=== PATIENT | male | born 1980 | race Caucasian/White ===

== ENCOUNTER 2019-10-11 19:55 | Emergency (ER) | payer BC, SELFPAY ==
[2019-10-11 20:13] VITALS: BP 133/69; PULSE 73; RESP 20; TEMP 36.7; O2SAT 98; BMI 26.4
[2019-10-11 20:20] VITALS: BP 133/69; PULSE 73; RESP 20; TEMP 36.7; O2SAT 98
--- NOTE | 2019-10-11 20:26 | HMH.EDUTC ---
[facility] [place]ression: Encounter for laboratory testing for COVID-19 virus Disposition: Home, Self-Care Condition on Discharge: Good Instructions: Preventing the Spread of Coronavirus Discharge Instructions, DI for Fever (Symptom) -- Adult Additional Instructions: You was given handout for Quarantine instructions for COVID19 make sure that you follow them and not be out in the public or around family until negative result *Make sure to wash your hands frequently Follow up with Family Doctor if no improvement or any worsening of symptoms No work until negative COVID19 test Return if needed Make sure to drink plenty of fluids Over the counter Tylenol as directed on package for fever or pain Call back to the [facility] on Friday to see if your test results are back and the results Straight to ER if any life threatening symptoms Prescriptions: Fluticasone Propionate [Flonase 50mcg nasal spray 16gm] 1 - 2 spr NS DAILY #1 bottle Transmission Status: Pending to [facility] Referrals: PCP,No [Primary Care Provider] - As needed Forms: Work/School Release Medical Decision Making - Robert Inquiry Pt receiving controlled substance: No Robert was queried for this patient: No Vital Signs: 10/11/19 20:13 10/11/19 20:20 Temperature 98.1 F 98.1 F Temperature Source Oral Pulse Rate 73 Pulse Rate [Right Brachial] 73 Respiratory Rate 20 20 Blood Pressure 133/69 Blood Pressure [Right Arm] 133/69 Blood Pressure Mean [Right Arm] 90 Blood Pressure Source [Right Arm] Automatic Cuff Blood Pressure Position [Right Arm] Sitting 02 Sat by Pulse Oximetry 98 Oxygen Delivery Method Room Air - Lab Data Lab results reviewed: Yes: I reviewed the patient's lab results. Orders (Tests/Meds): ORDERS Category Date Time Status SARS-CoV-2, SONIA Stat Lab 10/11/19 20:06 [place] [facility] [place] - General Stated complaint: wants to be test for COVID-19 Time Seen by Provider: 10/11/19 20:26 Mode of Arrival: Ambulatory Source of Information: Patient Limitations: No Limitations Description of Symptoms (Recalled from Triage Doc. by RN): PATIENT STATES THAT HE WAS SENT HOME FROM WORK BECAUSE HIS BODY TEMP WAS ELEVATED. WORK IS REQUESTING HE BE TESTED FOR COVID. DENIES ANY SYMPTOMS OR SICK CONTACTS HEENT Symptoms (Recalled from RN notes): No Resp Symptoms (Recalled from RN notes): No Skin Symptoms (Recalled from RN notes): No MS Symptoms (Recalled from RN notes): No Functional Status (Recalled from RN notes): WNL - History of Present Illness Provider Complaint: Patient states that he was outside and walked into work under a thermoscanner States that his temp read elevated States that his work made him leave and told him that he had to come and get tested for COVID19 States that he has had a little nasal congestion but denies feeling ill or any known exposure to COVID19 - Related Data Previous Rx's Medication Instructions Recorded Fluticasone Propionate [Flonase 1 - 2 spr NS DAILY #1 bottle 10/11/19 50mcg nasal spray 16gm] Allergies Allergy/AdvReac Type Severity Reaction Status Date / Time No Known Allergies Allergy Verified 10/27/17 23:08 - Worker's Comp Is this a Worker's Comp case?: No [facility] History - Hepatitis A Screen Drug use history?: No High risk sexual behaviors?: No History of sexually transmitted infection?: No Currently employed?: No Childcare worker?: No Do you have indoor plumbing?: Yes Do you have electricity?: Yes Attestation statement:: This patient has been screened for Hepatitis A risk factors. I have reviewed the patient's past medical history: Yes Medical History: Denies:: Diabetes Mellitus Type 1 - Social History Smoking Status: Current every day smoker Tobacco Type: smokeless tobacco Alcohol Intake: never Occupational Status: other ROS Obtained: Yes All systems reviewed & no additional complaints, Yes Systems reviewed as appropriate & no additional com
[2019-10-13 15:14] LABS: Covid-19 Nasal PCR Sendout Lex NOT DETECTED
== END 2019-10-11 20:38 | disposition home or self-care (01) ==
PROVIDERS: Emergency Provider Nurse Practitioner
DX: Z03.818 Encounter for observation for suspected exposure to other biological agents ruled out (principal); R50.9 Fever, unspecified; F17.290 Nicotine dependence, other tobacco product, uncomplicated
CPT/HCPCS: 99201; U0004

== ENCOUNTER → 2019-12-24 15:16 | Outpatient (CLI) | payer BC, SELFPAY ==
--- NOTE | 2019-12-24 | XR_ITS ---
PROCEDURE: XR FOOT RT MIN 3V CLINICAL INDICATION: PAIN IN RT FOOT COMPARISON: No exams were available for comparison FINDINGS: No fracture or dislocation. No lytic or blastic change. There is normal mineralization. The joint spaces are well-preserved. No significant degenerative/arthritic changes. No erosive changes evident. There minor hammertoe deformities of the 2nd 3rd toes. Other findings:There is a small spur of the calcaneus at the insertion of Achilles tendon. The plantar arch is normal. IMPRESSION: Minor hammertoe deformities as noted, otherwise normal right foot Dictated by: Dr. Diogo Elizondo MD 12/25/2019 10:10 Dr. Diogo Elizondo MD in [place] 12/25/2019 10:10
--- NOTE | 2019-12-24 | XR_ITS ---
PROCEDURE: XR FOOT LT MIN 3V CLINICAL INDICATION: PAIN IN LT FOOT COMPARISON: CR XR FOOT RT MIN 3V from 12/24/2019 FINDINGS: No fracture or dislocation. No lytic or blastic change. There is normal mineralization. The joint spaces are well-preserved. No significant degenerative/arthritic changes. No erosive changes evident. There are mild hammertoe deformities of the 2nd and 3rd toes. Other findings:There is a tiny spur of the calcaneus at the insertion of Achilles tendon. The plantar arch is normal. IMPRESSION: Minor hammertoe deformities 2nd and 3rd toes Dictated by: Dr. Diogo Elizondo MD 12/25/2019 10:08 Dr. Diogo Elizondo MD in [place] 12/25/2019 10:08
== END ==
PROVIDERS: PCP Nurse Practitioner Family; Visit Provider Nurse Practitioner Family
DX: M79.672 Pain in left foot (principal); M79.671 Pain in right foot
CPT/HCPCS: 73630

== ENCOUNTER 2020-01-30 17:52 | Emergency (ER) | payer BC, SELFPAY ==
[2020-01-30 18:00] VITALS: BP 119/69; PULSE 103; RESP 22; TEMP 36.8; O2SAT 96; BMI 26.4
--- NOTE | 2020-01-30 18:11 | HMH.EDUTC ---
[facility] [place]ression: Encounter for laboratory testing for COVID-19 virus, Impacted cerumen of both ears Nausea & vomiting Qualifiers: Vomiting type: unspecified Vomiting Intractability: non-intractable Qualified Code(s): R11.2 - Nausea with vomiting, unspecified Disposition: Home, Self-Care Condition on Discharge: Good Instructions: DI for Nausea -- Adult, Preventing the Spread of Coronavirus Discharge Instructions Additional Instructions: Monitor temperature. Seek treatment if fever develops. Follow-up immediately if new or worse symptoms worsen or no noticeable improvement over 48 hours. Increase fluids such as water, Gatorade, Powerade, juice or Pedialyte with limited formula/dietary in children No food is okay as long as you are drinking. Once ready to eat start bland such as bananas, rice, applesauce, toast. Contagious until no diarrhea, vomiting, fever times 48 hours without medication Avoid antidiarrheals unless told otherwise. Best to let the virus run its course. Follow-up immediately for new or worsening symptoms or no noticeable improvement over the next 48 hours. call for covid results follow up with pcp debrox drops 5 drops for 5 days once a month to prevent build up of wax Prescriptions: ondansetron HCL [Zofran 4mg Tab*] 4 mg PO TIDP PRN 3 Days #9 tab PRN Reason: Nausea And Vomiting Transmission Status: Pending to [facility] Referrals: Mellisa Boswell APRN [Primary Care Provider] - Forms: Work/School Release Medical Decision Making - Robert Inquiry Pt receiving controlled substance: No Vital Signs: 01/30/20 18:00 Temperature 98.3 F Temperature Source Oral Pulse Rate [Left Brachial] 103 H Respiratory Rate 22 Blood Pressure [Left Arm] 119/69 Blood Pressure Mean [Left Arm] 85 Blood Pressure Source [Left Arm] Automatic Cuff Blood Pressure Position [Left Arm] Sitting 02 Sat by Pulse Oximetry 96 Oxygen Delivery Method Room Air - Lab Data Lab Results 01/30/20 18:02: Influenza Type A Ag Negative, Influenza Type B Ag Negative Orders (Tests/Meds): ORDERS Category Date Time Status Covid-19 Nasal PCR ([facility]) Routine Lab 01/30/20 18:05 [place] [facility] [place] - General Chief complaint: [facility] Stated complaint: Weakness,Nausa,Vomiting,Abd Pain Time Seen by Provider: 01/30/20 18:33 Mode of Arrival: Ambulatory Source of Information: Patient Limitations: No Limitations Description of Symptoms (Recalled from Triage Doc. by RN): PATIENT C/O NAUSEA, VOMITING, CHILLS, DIZZINESS, WEAKNESS, UPPER ABD PAIN AND FEVER (LAST NIGHT) X 2 DAYS. STATES THERE ARE SEVERAL COVID CASES WHERE HE WORKS, UNKNOWN DIRECT EXPOSURE HEENT Symptoms (Recalled from RN notes): No Resp Symptoms (Recalled from RN notes): Yes Skin Symptoms (Recalled from RN notes): No MS Symptoms (Recalled from RN notes): No Functional Status (Recalled from RN notes): WNL - History of Present Illness Provider Complaint: 40 yr old male presents for sore throat, subjective fever,nausea and then it makes him dizzy, epigastric pain and body aches for 2 days. Pt states at his work place there has been over 40 people that tested positive for covid. - Related Data Previous Rx's Medication Instructions Recorded ondansetron HCL [Zofran 4mg Tab*] 4 mg PO TIDP PRN 3 Days #9 tab 01/30/20 Allergies Allergy/AdvReac Type Severity Reaction Status Date / Time No Known Allergies Allergy Verified 10/27/17 23:08 - Worker's Comp Is this a Worker's Comp case?: No [facility] History - Hepatitis A Screen Drug use history?: No High risk sexual behaviors?: No History of sexually transmitted infection?: No Currently employed?: No Childcare worker?: No Do you have indoor plumbing?: Yes Do you have electricity?: Yes Attestation statement:: This patient has been screened for Hepatitis A risk factors. I have reviewed the patient's past medical history: Yes Medical History: Denies:: Diabetes Mellit
[2020-01-30 18:18] LABS: UTC Influenza A Antigen Negative (Negative); UTC Influenza B Antigen Negative (Negative)
[2020-01-30 19:00] LABS: UTC Strep Screen (Rapid) Negative (Negative)
[2020-01-30 19:07] VITALS: BP 119/69; PULSE 103; RESP 22; TEMP 36.8; O2SAT 96
== END 2020-01-30 19:10 | disposition home or self-care (01) ==
PROVIDERS: Emergency Provider Nurse Practitioner Family; PCP Nurse Practitioner Family
DX: Z20.828 Contact with and (suspected) exposure to other viral communicable diseases (principal); H61.23 Impacted cerumen, bilateral; F17.290 Nicotine dependence, other tobacco product, uncomplicated
CPT/HCPCS: 87804; 87880; 99202; U0003

== ENCOUNTER 2020-11-17 14:51 | Emergency (ER) | payer BC, SELFPAY ==
[2020-11-17 16:54] VITALS: BP 121/73; PULSE 52; RESP 18; TEMP 36.7; O2SAT 100; BMI 25.7
--- NOTE | 2020-11-17 17:14 | HMH.EDUTC ---
[facility] [place] Impression: Viral syndrome, Exposure to COVID-19 virus Disposition: Home, Self-Care Condition on Discharge: Good Instructions: DI for COVID-19 (Suspected or Confirmed ), Preventing the Spread of Coronavirus Discharge Instructions Additional Instructions: Drink plenty of fluids. Take tylenol for pain or fever. Return if you begin to have difficulty breathing. Follow up with your regular doctor. GO TO THE ER FOR ANY WORSENING SYMPTOMS Quarantine until you know the results of your covid-19 test. If it is positive, the health department should call you and give you further instructions about your length of Quarantine and other things. Notify your school or workplace of your results and follow their instructions regarding return to work/school. Prescriptions: Promethazine HCl [Phenergan 25mg tab] 25 mg PO Q6H PRN #20 tab PRN Reason: Nausea And Vomiting Transmission Status: Received by [facility] Benzonatate [Tessalon Perle 100mg Cap] 100 mg PO TIDP PRN #30 cap PRN Reason: Cough Transmission Status: Received by [facility] Azithromycin [Z-Antonio 250mg Tab*] 250 mg PO UD DOSE PK #6 tab Transmission Status: Received by [facility] Referrals: Keith Longoria MD [Primary Care Provider] - Forms: Work/School Release Time of Disposition: 17:39 Medical Decision Making - Medical Records Medical records reviewed: No: I reviewed the patient's medical records. - Robert Inquiry Pt receiving controlled substance: No Vital Signs: 11/17/20 16:54 11/17/20 17:26 Temperature 98.0 F 98.0 F Temperature Source Oral Pulse Rate 52 L Pulse Rate [Right Brachial] 52 L Respiratory Rate 18 18 Blood Pressure 121/73 Blood Pressure [Right Arm] 121/73 Blood Pressure Mean [Right Arm] 89 Blood Pressure Source [Right Arm] Automatic Cuff Blood Pressure Position [Right Arm] Sitting 02 Sat by Pulse Oximetry 100 Oxygen Delivery Method Room Air - Lab Data Lab Results 11/17/20 17:20: Strep Scn Rapid Clinic Negative Orders (Tests/Meds): ORDERS Category Date Time Status Strep Screen Confirmation Stat Micro 11/17/20 17:20 [place] [facility] [place] - General Stated complaint: covid exposure Time Seen by Provider: 11/17/20 17:14 Mode of Arrival: Ambulatory Source of Information: Patient Limitations: No Limitations Description of Symptoms (Recalled from Triage Doc. by RN): PATIENT C/O LOSS OF TASTE/SMELL, HEADACHE, CHILLS, AND WEAKNESS. REQUESTING COVID TEST HEENT Symptoms (Recalled from RN notes): Yes Resp Symptoms (Recalled from RN notes): No Skin Symptoms (Recalled from RN notes): No MS Symptoms (Recalled from RN notes): No Functional Status (Recalled from RN notes): WNL - History of Present Illness Provider Complaint: He states that for the past 2 days he has had cough, congestion, body aches, head ache and he cannot smell or taste anything. - Related Data Previous Rx's Medication Instructions Recorded ondansetron HCL [Zofran 4mg Tab*] 4 mg PO TIDP PRN 3 Days #9 tab 01/30/20 Azithromycin [Z-Antonio 250mg Tab*] 250 mg PO UD DOSE PK #6 tab 11/17/20 Benzonatate [Tessalon Perle 100mg 100 mg PO TIDP PRN #30 cap 11/17/20 Cap] Promethazine HCl [Phenergan 25mg 25 mg PO Q6H PRN #20 tab 11/17/20 tab] Allergies Allergy/AdvReac Type Severity Reaction Status Date / Time No Known Allergies Allergy Verified 10/27/17 23:08 - Worker's Comp Is this a Worker's Comp case?: No [facility] History - Hepatitis A Screen Drug use history?: No High risk sexual behaviors?: No History of sexually transmitted infection?: No Currently employed?: No Childcare worker?: No Do you have indoor plumbing?: Yes Do you have electricity?: Yes Attestation statement:: This patient has been screened for Hepatitis A risk factors. I have reviewed the patient's past medical history: Yes Medical History: Denies:: Diabetes Mellitus Type 1 - Social Hist
[2020-11-17 17:26] VITALS: BP 121/73; PULSE 52; RESP 18; TEMP 36.7; O2SAT 100
[2020-11-17 17:50] LABS: UTC Strep Screen (Rapid) Negative (Negative)
--- NOTE | 2020-11-18 10:22 | PC.NURSE ---
talked to patient let them know that he was positive
== END 2020-11-17 17:56 | disposition home or self-care (01) ==
PROVIDERS: Emergency Provider Nurse Practitioner Family; PCP Family Medicine
DX: U07.1 COVID-19 (principal); F17.210 Nicotine dependence, cigarettes, uncomplicated
CPT/HCPCS: 87880; 99203; G0463; U0003

== ENCOUNTER → 2021-02-07 08:21 | Outpatient (CLI) | payer BC, SELFPAY | PROVIDERS: PCP Family Medicine; Visit Provider Nurse Practitioner | DX: Z20.822 Contact with and (suspected) exposure to COVID-19 (principal) | CPT/HCPCS: C9803; U0003; U0005 ==

== ENCOUNTER 2021-07-27 09:21 | Emergency (ER) | payer BC, SELFPAY ==
[2021-07-27] VITALS (7 sets, daily range): BP systolic 95–153; BP diastolic 57–99; PULSE 56–77; RESP 16–18; TEMP 36.6–36.9; O2SAT 98; BMI 26.9
--- NOTE | 2021-07-27 09:20 | ECG_ITS ---
APPROVED REPORT Exam: Resting ECG HR:72 bpm ECG Measurements Heart Rate 72 AXES UT 163 P 68 QRSd 85 QRS 59 QT 352 T 63 QTc 377 Conclusion SINUS RHYTHM NORMAL ECG UNCONFIRMED REPORT Electronically signed by : Keith Rob MD 07/28/2021 09:05:46
--- NOTE | 2021-07-27 09:36 | XR_ITS ---
FINAL REPORT TECHNIQUE: Chest PA & Lateral CLINICAL HISTORY: chest pain. DIZZINESS, SMOKER COMPARISON: August 09, 2016 FINDINGS: 2 views of the chest were performed. The heart size is normal. The mediastinum is within normal limits. There is no acute cardiopulmonary process. There are no pleural effusions. There is no pneumothorax. The bony thorax appears intact. IMPRESSION: No acute cardiopulmonary process. Reviewed, Interpreted and Dictated by Lane Phillips MD Transcribed by Boni Sprague Authenticated by Lane Phillips MD on 07/27/2021 10:42:24 AM [facility]
[2021-07-27 10:01] LABS: Basophils # 0.2 K/mm3 (0-0.2); Basophils % 2.4 % (0.1-2.0); Eosinophils # 0.1 K/mm3 (0.0-0.4); Eosinophils % 0.9 % (0.1-12.0); Hematocrit 47.3 % (42.0-52.0); Hemoglobin 15.7 g/dL (14.1-18.0); Lymphocytes # 1.5 K/mm3 (0.7-4.5); Lymphocytes % 17.5 % (10-50); Mean Corpuscular HGB Conc 33.1 g/dL (31.8-35.4); Mean Corpuscular Hemoglobin 31.3 pg (27.0-31.2); Mean Corpuscular Volume 94.6 fl (80-94); Mean Platelet Volume 8.3 fl (7.4-10.4); Monocytes # 0.6 K/mm3 (0.1-1.0); Monocytes % 6.7 % (1.7-9.3); Neutrophils # 6.2 K/mm3 (1.8-7.8); Neutrophils % 72.5 % (37.0-80.0); Platelet Count 311 K/mm3 (142-424); Red Cell Distribution Width 13.2 % (11.5-17.5); White Blood Count 8.5 K/mm3 (4.8-10.8)
[2021-07-27 10:11] LABS: Chloride 107 mmol/L (98-107)
[2021-07-27 10:12] LABS: Potassium 3.7 mmoL/L (3.5-5.1); Sodium 140 mmol/L (136-145)
[2021-07-27 10:15] LABS: Anion Gap 9.7 mEq/L (5-15); Blood Urea Nitrogen 13 mg/dl (9-20); Calcium 9.2 mg/dl (8.4-10.2); Carbon Dioxide 27 mmol/L (22.0-30.0); Creatinine Clearance Estimated 146 mL/min (50-200); Estimated Glomerular Filt Rate 93 ml/min (>60); GFR (African American) 113 ML/MIN (>60); Glucose 116 mg/dl (74-100)
[2021-07-27 10:29] LABS: Troponin I < 0.01 ng/ml (0.00-0.034)
--- NOTE | 2021-07-27 10:31 | HMH.EDGENADL ---
ED Disposition Clinical Impression: Atypical chest pain Disposition: Home, Self-Care Condition on Discharge: Good Instructions: DI for Atypical Chest Pain Additional Instructions: Additional instructions for CHEST PAIN: See Dr. Baca as soon as possible for cardiology evaluation, call for appointment. Return immediately if worsening chest pain, vomiting, shortness of breath, fever, coughing of blood. Referrals: Provider,MD Durga [Primary Care Provider] - Jose Alfredo Baca MD [Staff Physician] - - Critical Care Critical Care Time: No Attestation: On 07/27/21, the high probability of a clinically significant, sudden or life threatening deterioration of the following system(s) required my full and direct attention, intervention and personal management. The time I documented below is in addition to time spent performing reported procedures but includes the following listed in this critical care notation. Medical Decision Making - Robert Inquiry Pt receiving controlled substance: No Vital Signs: 07/27/21 09:23 07/27/21 10:00 07/27/21 10:30 Temperature 98.4 F Temperature Source Oral Pulse Rate 69 61 Pulse Rate [Right Radial] 77 Respiratory Rate 16 16 18 Blood Pressure 118/77 114/78 Blood Pressure [Right Arm] 153/99 H Blood Pressure Mean 90 84 Blood Pressure Mean [Right Arm] 117 Blood Pressure Source [Right Arm] Automatic Cuff Blood Pressure Position [Right Arm] Sitting 02 Sat by Pulse Oximetry 98 98 98 07/27/21 11:00 07/27/21 11:30 07/27/21 12:00 Temperature Temperature Source Pulse Rate 68 56 L 56 L Pulse Rate [Right Radial] Respiratory Rate 16 16 16 Blood Pressure 125/80 116/74 95/57 L Blood Pressure [Right Arm] Blood Pressure Mean 95 88 69 Blood Pressure Mean [Right Arm] Blood Pressure Source [Right Arm] Blood Pressure Position [Right Arm] 02 Sat by Pulse Oximetry 98 98 98 - Lab Data Lab Results 07/27/21 09:31: WBC 8.5, RBC 5.00, Hgb 15.7, Hct 47.3, MCV 94.6 H, MCH 31.3 H, MCHC 33.1, RDW 13.2, Plt Count 311, MPV 8.3, Neut % (Auto) 72.5, Lymph % (Auto) 17.5, Blanco % (Auto) 6.7, Eos % (Auto) 0.9, Baso % (Auto) 2.4 H, Neut # (Auto) 6.2, Lymph # (Auto) 1.5, Blanco # (Auto) 0.6, Eos # (Auto) 0.1, Baso # (Auto) 0.2 07/27/21 09:31: Sodium 140, Potassium 3.7, Chloride 107, Carbon Dioxide 27, Anion Gap 9.7, BUN 13, Creatinine 0.90, Estimated Creat Clear 146, Estimated GFR 93, Est GFR ( Amer) 113, Glucose 116 H, Calcium 9.2, Troponin I < 0.01 Result diagrams: 07/27/21 09:31 07/27/21 09:31 Orders (Tests/Meds): ED MEDICATIONS Generic Name Dose Route Start Last Admin Trade Name Freq PRN Reason Stop Dose Admin Sodium Chloride 10 ml 07/27/21 09:36 Sodium Chloride 0.9% 10ml Flush Syringe IV 08/26/21 09:35 NEEDED PRN Maintain IV Site Discontinued Medications Generic Name Dose Route Start Last Admin Trade Name Freq PRN Reason Stop Dose Admin Aspirin 324 mg 07/27/21 09:36 07/27/21 10:02 Aspirin 81mg Chewable Tablet PO 07/27/21 09:37 324 mg ONCE ONE Administration ORDERS Category Date Time Status Troponin I Q3H Lab 07/27/21 12:45 Ordered Troponin I Q3H Lab 07/27/21 15:45 Ordered - Radiology Data #1 Image(s): Chest Image Reviewed: Yes I have reviewed radiologist's interpretation Procedure(s): XR chest 2V Accession Number(s): [id number] cc: Lane Phillips MD; Provider,Referral MD~ FINAL REPORT TECHNIQUE: Chest PA & Lateral CLINICAL HISTORY: chest pain. DIZZINESS, SMOKER COMPARISON: August 09, 2016 FINDINGS: 2 views of the chest were performed. The heart size is normal. The mediastinum is within normal limits. There is no acute cardiopulmonary process. There are no pleural effusions. There is no pneumothorax. The bony thorax appears intact. IMPRESSION: No acute cardiopulmonary process. Reviewed, Interpreted and Dictated by Lane Phillips MD Transcribed by Osman
--- NOTE | 2021-07-27 11:03 | PC.NURSE ---
pt sleeping at this time, will continue to monitor
== END 2021-07-27 12:39 | disposition home or self-care (01) ==
PROVIDERS: Emergency Provider Emergency Medicine
DX: R07.89 Other chest pain (principal); R42 Dizziness and giddiness; I49.9 Cardiac arrhythmia, unspecified; Z72.0 Tobacco use
CPT/HCPCS: 71046; 80048; 84484; 85025; 93005; 99283

== ENCOUNTER 2021-08-28 18:03 | Emergency (ER) | payer SELFPAY ==
[2021-08-28 18:35] VITALS: BP 151/76; PULSE 74; RESP 19; TEMP 36.9; O2SAT 97; BMI 26.2
--- NOTE | 2021-08-28 19:01 | HMH.EDUTC ---
[facility] [place] Clinical Impression: Low back pain Qualifiers: Chronicity: unspecified Back pain laterality: midline Sciatica presence: without sciatica Qualified Code(s): M54.50 - Low back pain, unspecified Disposition: Home, Self-Care Condition on Discharge: Good Instructions: Low Back Pain, DI for Low Back Pain, Cyclobenzaprine, Etodolac Additional Instructions: *Etodolac sari 8 hours with meal as needed for pain/inflammation *Remember you had a Toradol shot in the clinic today, which is similar to Motrin *Not additional anti-inflammatory like Ibuprofen motrin, aleve, advil with the above amount of Etodolac. You can still take Tylenol every 4 hours as needed if you need something else for pain *Ice 20 minutes every 2 hours for the first 48 hours after the initial injury followed by moist heat every 20 minutes 3-4 times a day to affected area *Muscle relaxer every 8 hours as needed for muscle spasms but remember, it WILL cause drowsiness You cannot take it and drive, operate machinery or care for small children. *Keep this area active, no movement leads to more stiffness, However take it easy and avoid heavy lifting pushing or pulling *Follow up with you family doctor if no improvement for further treatment Prescriptions: Etodolac 200 mg PO Q8HP PRN #20 cap PRN Reason: Moderate Pain Transmission Status: Received by [facility] Cyclobenzaprine HCl [Flexeril 10mg tablet] 10 mg PO Q8HP PRN #15 tab PRN Reason: Muscle Spasm Transmission Status: Received by [facility] Referrals: Mellisa Boswell APRN [Primary Care Provider] - As needed Forms: Work/School Release Medical Decision Making - Robert Inquiry Pt receiving controlled substance: No Robert was queried for this patient: No Vital Signs: 08/28/21 18:35 08/28/21 19:15 Temperature 98.5 F 98.5 F Temperature Source Oral Pulse Rate 74 Pulse Rate [Left Brachial] 74 Respiratory Rate 19 19 Blood Pressure 151/76 H Blood Pressure [Left Arm] 151/76 H Blood Pressure Mean [Left Arm] 101 Blood Pressure Source [Left Arm] Automatic Cuff Blood Pressure Position [Left Arm] Sitting 02 Sat by Pulse Oximetry 97 Oxygen Delivery Method Room Air Orders (Tests/Meds): ED MEDICATIONS Discontinued Medications Generic Name Dose Route Start Last Admin Trade Name James PRN Reason Stop Dose Admin Ketorolac Tromethamine 60 mg 08/28/21 19:06 08/28/21 19:15 Ketorolac 60mg/2ml Vial IM 08/28/21 19:07 60 mg ONCE ONE Administration Methylprednisolone Sodium Succinate 125 mg 08/28/21 19:06 08/28/21 19:15 Methylprednisolone Sod Succ 125mg Vial IM 08/28/21 19:07 125 mg ONCE ONE Administration [facility] [place] - General Stated complaint: back pain Time Seen by Provider: 08/28/21 19:01 Mode of Arrival: Ambulatory Source of Information: Patient Limitations: No Limitations Description of Symptoms (Recalled from Triage Doc. by RN): PATIENT C/O LOWER BACK PAIN SINCE THIS MORNING HEENT Symptoms (Recalled from RN notes): No Resp Symptoms (Recalled from RN notes): No Skin Symptoms (Recalled from RN notes): No MS Symptoms (Recalled from RN notes): Yes Functional Status (Recalled from RN notes): WNL - History of Present Illness Provider Complaint: Patient states that he felt something pull in his lower back this morning when he was getting out of bed States that he has been having spasm like pain in his lower back ever since that is worse when he just sits States that this evening he was still having discomfort so he came in Denies loss of control of bowel or bladder - Related Data Previous Rx's Medication Instructions Recorded Cyclobenzaprine HCl [Flexeril 10mg 10 mg PO Q8HP PRN #15 tab 08/28/21 tablet] Etodolac 200 mg PO Q8HP PRN #20 cap 08/28/21 Allergies Allergy/AdvReac Type Severity Reaction Status Date / Time No Known Allergies Allergy Verified 10/27/17 23:08 - Worker's Comp Is this a Worker's Comp case?: No
[2021-08-28 19:15] VITALS: BP 151/76; PULSE 74; RESP 19; TEMP 36.9; O2SAT 97
== END 2021-08-28 19:25 | disposition home or self-care (01) ==
PROVIDERS: Emergency Provider Nurse Practitioner; PCP Nurse Practitioner Family
DX: M54.50 Low back pain, unspecified (principal)
CPT/HCPCS: 96372; 99212; G0463

== ENCOUNTER 2021-08-30 07:31 | Emergency (ER) | payer SELFPAY ==
--- NOTE | 2021-08-30 07:36 | PC.NURSE ---
MUKESH Ordaz at [facility] at this time
--- NOTE | 2021-08-30 07:36 | PC.NURSE ---
pt states he can not provide a UA at this time
[2021-08-30 07:39] VITALS: BP 129/86; PULSE 70; RESP 17; TEMP 36.2; O2SAT 97; BMI 25.7
--- NOTE | 2021-08-30 07:58 | XR_ITS ---
FINAL REPORT TECHNIQUE: 3 views CLINICAL HISTORY: low back pain- no accident/injury FINDINGS: There is no fracture present. There is 9 mm of anterolisthesis of L5 on S1. There is mild retrolisthesis of L4 on L5. There is mild and moderate degenerative change. There are bilateral L5 pars defects. IMPRESSION: [id number] degenerative changes. Bilateral L5 pars defects. Reviewed, Interpreted and Dictated by Calvin Argueta III, MD Transcribed by Radha Rees Authenticated and [facility]
[2021-08-30 08:01] VITALS: BP 117/75; PULSE 87; O2SAT 98
--- NOTE | 2021-08-30 08:04 | PC.NURSE ---
pt to radiology
--- NOTE | 2021-08-30 08:10 | PC.NURSE ---
pt return from xray
[2021-08-30 08:30] VITALS: BP 127/85; PULSE 95; O2SAT 97
--- NOTE | 2021-08-30 08:40 | PC.NURSE ---
Dr. Islas at [facility]
--- NOTE | 2021-08-30 08:51 | HMH.EDGENADL ---
ED Disposition Clinical Impression: Lower back pain Disposition: Home, Self-Care Condition on Discharge: Good Instructions: DI for Low Back Pain Referrals: Mellisa Boswell APRN [Primary Care Provider] - - Critical Care Critical Care Time: No Attestation: On 08/30/21, the high probability of a clinically significant, sudden or life threatening deterioration of the following system(s) required my full and direct attention, intervention and personal management. The time I documented below is in addition to time spent performing reported procedures but includes the following listed in this critical care notation. Medical Decision Making - Robert Inquiry Pt receiving controlled substance: No Vital Signs: 08/30/21 07:39 08/30/21 08:01 08/30/21 08:30 Temperature 97.2 F L Temperature Source Oral Pulse Rate 87 95 H Pulse Rate [Left Radial] 70 Respiratory Rate 17 Blood Pressure 117/75 127/85 Blood Pressure [Right Arm] 129/86 Blood Pressure Mean 86 94 Blood Pressure Mean [Right Arm] 100 02 Sat by Pulse Oximetry 97 98 97 Oxygen Delivery Method Room Air Room Air 08/30/21 09:03 Temperature Temperature Source Pulse Rate 68 Pulse Rate [Left Radial] Respiratory Rate Blood Pressure 106/63 L Blood Pressure [Right Arm] Blood Pressure Mean 77 Blood Pressure Mean [Right Arm] 02 Sat by Pulse Oximetry 98 Oxygen Delivery Method - Lab Data Lab Results 08/30/21 08:58: Urine Color Yellow, Urine Appearance Clear, Urine pH 6.5, Ur Specific [place] 1.010, Urine Protein Negative, Urine Glucose (UA) Negative, Urine Ketones Negative, Urine Blood Negative, Urine Nitrate Negative, Urine Bilirubin Negative, Urine Urobilinogen 0.2, Ur Leukocyte Esterase Negative, Ur Squamous Epith Cells Occasional, Urine Bacteria Trace Orders (Tests/Meds): ED MEDICATIONS Generic Name Dose Route Start Last Admin Trade Name Freq PRN Reason Stop Dose Admin Lidocaine 1 each 08/30/21 09:00 08/30/21 08:54 Lidocaine 5% Transdermal Patch TP 09/29/21 08:59 1 each Q24H KRYSTLE Administration Methocarbamol 500 mg 08/30/21 09:00 08/30/21 08:55 Methocarbamol 500mg Tablet PO 09/29/21 08:59 500 mg BID KRYSTLE Administration Discontinued Medications Generic Name Dose Route Start Last Admin Trade Name Freq PRN Reason Stop Dose Admin Acetaminophen 1,000 mg 08/30/21 08:49 08/30/21 08:55 Acetaminophen 500mg Tab PO 08/30/21 08:50 1,000 mg ONCE ONE Administration Ketorolac Tromethamine 15 mg 08/30/21 08:49 08/30/21 08:55 Ketorolac 30mg/Ml Vial IM 08/30/21 08:50 15 mg ONCE ONE Administration Methylprednisolone Sodium Succinate 125 mg 08/30/21 09:36 08/30/21 09:54 Methylprednisolone Sod Succ 125mg Vial IM 08/30/21 09:37 125 mg ONCE ONE Administration Medical Decision Narrative: Differential diagnosis includes but is not limited to muscle spasm, lumbar radiculopathy, fracture. Hemodynamically stable, no acute distress, appearing. No focal neurological deficits. As listed in HPI and from exam, there is not significant number of back pain red flags from patient's presentation and exam. Significant pathology such as tumor or malignancy, epidural abscess, aortic dissection, retroperitoneal bleed, equina syndrome, other infection, were all considered. Advised patient that x-ray of the lumbar spine would give limited pathological assessment and offered patient CT scan but patient states he does not want CT scan at this time and wants pain medication primarily to treat his pain so he can get out of here and see my daughter and I believe this is reasonable as patient's history and exam does not strongly reflect significant acute emergent pathology at this time. Given this, patient was given p.o. Tylenol, IM Toradol, given lidocaine patch, Robaxin for multimodal pain control. On reassessment, patient has gotten out of bed, and is now sitting appearing comfortable in bedside chair, and stat
--- NOTE | 2021-08-30 08:54 | PC.NURSE ---
pt ambulatory to restroom without complications
--- NOTE | 2021-08-30 08:58 | PC.NURSE ---
UA sent to lab
--- NOTE | 2021-08-30 09:02 | PC.NURSE ---
pt medicated per MAR, Pt sitting up on side of bed, family member at BS. will continue to monitor
[2021-08-30 09:03] VITALS: BP 106/63; PULSE 68; O2SAT 98
[2021-08-30 09:21] LABS: Microscopic, Urine URINE MICROSCOPIC (MICROSCOPIC)
[2021-08-30 09:32] LABS: Appearance,Urine CLEAR (Clear); Bilirubin,Urine Negative (Negative); Blood, Urine Negative (Negative); Color,Urine YELLOW (Yellow); Glucose,Urine (UA) Negative (Negative); Ketones,Urine Negative (Negative); Leukocyte Esterase,Urine Negative (Negative); Nitrate,Urine Negative (Negative); PH,Urine 6.5 (5.0-8.5); Protein,Urine Negative (Negative); Urobilinogen,Urine 0.2 EU/dl (0.2)
[2021-08-30 09:50] LABS: Bacteria,Urine Trace /lpf; Squamous Epithelial Cell,Urine Occasional #/hpf (0-5)
--- NOTE | 2021-08-30 09:57 | PC.NURSE ---
ED MD at speaking with patient regarding POC
[2021-08-30 10:01] VITALS: BP 106/63; PULSE 83; RESP 18; TEMP 36.2; O2SAT 98
== END 2021-08-30 10:01 | disposition home or self-care (01) ==
PROVIDERS: Student in an Organized Health Care Education/Training Program; Emergency Provider Emergency Medicine; PCP Nurse Practitioner Family
DX: M54.16 Radiculopathy, lumbar region (principal); F17.290 Nicotine dependence, other tobacco product, uncomplicated
CPT/HCPCS: 72100; 81001; 96372; 99285

== ENCOUNTER 2023-03-28 20:24 | Emergency (ER) | payer SELFPAY ==
[2023-03-28 20:37] VITALS: BP 150/81; PULSE 71; RESP 18; TEMP 36.6; O2SAT 98; BMI 28.2
[2023-03-28 20:49] LABS: Coronavirus 19, PCR Not Detected (NotDetected); Influenza A, PCR Not Detected (NotDetected); Influenza B, PCR Not Detected (NotDetected)
[2023-03-28] MEDS: LACTATED RINGERS 1000ML 1,000 ML 999 ML IV (20:51)
[2023-03-28] MEDS: ONDANSETRON 4MG/2ML VIAL 4 MG IV (20:51)
[2023-03-28 22:03] VITALS: BP 134/78; PULSE 64; RESP 18; TEMP 36.6; O2SAT 99
--- NOTE | 2023-03-29 12:35 | ED_ITS ---
Discharge Plan Disposition Patient Disposition: Home, Self-Care Condition: Good Prescriptions Prescriptions: New ondansetron 4 mg tablet,disintegrating 4 mg PO Q8H PRN (Reason: nausea and vomiting) 5 Days Qty: 10 0RF Probiotic 3 billion cell capsule 3,000 mmu cells PO DAILY Qty: 30 0RF Rx Instructions: administer with a meal Referrals Follow up/Referrals: Keiht Longoria MD [Primary Care Provider] - See instructions Activity Restrictions/Add. Instructions Additional Instructions/Restrictions: Please return to the emergency department if you experience any new or worsening symptoms. Clinical Impressions Clinical Impression: Enteritis Stand Alone Forms Stand Alone Forms: Work/School Release Instructions Patient Instructions: DI for Diarrhea and Traveler's Diarrhea -- Adult, DI for Diarrhea and Traveler's Diarrhea -- Child, DI for Nausea -- Adult, DI for Nausea -- Child Discharge ED Provider: Meir Rutledge Adult HPI General Chief complaint: Nausea/Vomiting/Diarrhea Stated complaint: vomiting, diarrhea Time Seen by Provider: 03/28/23 21:41 Mode of Arrival: Ambulatory Source of Information: Patient and Spouse Limitations: No Limitations Description of Symptoms (Recalled from ER Triage Doc. by RN): Patient c/o N/V/D since yesterday. Patient states that a stomach bug has been going around work since . History of Present Illness HPI narrative: Patient complains of 1 day of nausea, vomiting, diarrhea, nonbloody. No associated fevers. Has mild diffuse abdominal pain associated with emesis. No previous therapies. Has several sick contacts including spouse at bedside. Has been able to tolerate p.o. No abdominal surgical history. No pain elsewhere. Denies any abdominal pain at this time Related Data Previous Rx's Medication Instructions Recorded lactobacillus combination no.4 3 3,000 mmu cells PO DAILY #30 caps 03/28/23 billion cell capsule (Probiotic) ondansetron 4 mg disintegrating 4 mg PO Q8H PRN nausea and 03/28/23 tablet vomiting 5 days #10 tabs Allergies Allergy/AdvReac Type Severity Reaction Status Date / Time No Known Allergies Allergy Verified 10/27/17 23:08 [facility] Disclaimer: The information contained in this section may have been updated after the patient was seen, as this information can be updated by other users. Social History Smoking Status: Never smoker alcohol intake: never current occupational status: other Travel in the last 8 weeks: None ROS Obtained: Yes Systems reviewed as appropriate & no additional complaints except as documented As per HPI Physical Exam General General appearance: alert and in no apparent distress Head Head exam: atraumatic and normocephalic Eye Eye exam: Present normal appearance Neck Neck exam: Present normal inspection Chest Chest inspection: Present normal inspection and symmetric chest wall rise Respiratory Respiratory exam: Present normal lung sounds bilaterally; Absent respiratory distress Cardiovascular Cardiovascular exam: Present regular rate and normal rhythm Abdominal Exam Abdominal exam: Present soft Neurological Exam Neurological exam: Present alert and oriented X3 Psychiatric Psychiatric exam: Present normal affect and normal mood Skin Skin exam: Present warm and dry Medical Decision Making Medical Records Medical records reviewed: Yes I reviewed the patient's medical records. Robert Inquiry Pt receiving controlled substance: No Vital Signs: 03/28/23 20:37 03/28/23 22:03 Temperature 97.8 F 97.8 F Temperature Source Oral Oral Pulse Rate 64 Pulse Rate [Radial] 71 Respiratory Rate 18 18 Blood Pressure 134/78 Blood Pressure [Right Arm] 150/81 H Blood Pressure Mean [Right Arm] 104 Blood Pressure Source [Right Arm] Automatic Cuff Blood Pressure Position [Right Arm] Sitting 02 Sat by Pulse Oximetry 98 Oxygen Delivery Method Room Air Lab Data Lab Results 03/28/23 20:43: SARS-CoV-2 (PCR) Not detected, Influenza A Untype (PCR) Not de tected, Influenza Type B (PCR) Not detected Orders (Tests/Meds): ED MEDICATIONS Discontinued Medications Generic Name Dose Route Start Last Admin Trade Name Freq PRN Reason Stop Dose Admin Lactated Ringer's 1,000 mls @ 999 mls/hr 03/28/23 20:37 03/28/23 20:51 Lactated Ringer's 1000 Ml Bag IV 03/28/23 21:37 999 mls/hr .Q1H1M ONE Administration Ondansetron HCl 4 mg 03/28/23 20:37 03/28/23 20:51 Ondansetron 4mg/2ml Vial IV 03/28/23 20:38 4 mg ONCE ONE Administration ORDERS Category Date Time Status Rapid PCR Covid and Flu A/B Stat Lab 03/28/23 20:43 Completed Medical Decision Narrative: Patient with history and exam per above presenting for evaluation of nausea, vomiting, diarrhea Diagnoses considered include enteritis, colitis, infectious diarrhea Given benign abdominal exam, 1 day of illness, with associated sick contacts with identical symptoms, low index of suspicion for acute surgical pathology. ED workup and treatment included: ED MEDICATIONS Discontinued Medications Generic Name Dose Route Start Last Admin Trade Name Freq PRN Reason Stop Dose Admin Lactated Ringer's 1,000 mls @ 999 mls/hr 03/28/23 20:37 03/28/23 20:51 Lactated Ringer's 1000 Ml Bag IV 03/28/23 21:37 999 mls/hr .Q1H1M ONE Administration Ondansetron HCl 4 mg 03/28/23 20:37 03/28/23 20:51 Ondansetron 4mg/2ml Vial IV 03/28/23 20:38 4 mg ONCE ONE Administration ORDERS Category Date Time Status Rapid PCR Covid and Flu A/B Stat Lab 03/28/23 20:43 Completed Labs were independently interpreted by me, significant for no acute findings Symptoms at this time are thought to be most consistent with viral gastroenteritis I discussed my clinical impression with patient and answered all questions. At this time, given reassuring workup and exam, I discussed that I have a low index of suspicion for any acute pathology necessitating inpatient management. Specific return precautions were given, with understanding and agreement. Patient will follow up with primary care provider as needed. Patient was provided prescription for probiotic, Zofran Critical Care Critical Care Time Critical Care Time: No
== END 2023-03-28 22:13 | disposition home or self-care (01) ==
PROVIDERS: Emergency Provider Emergency Medicine; PCP Family Medicine
DX: R10.9 Unspecified abdominal pain (principal); K52.9 Noninfective gastroenteritis and colitis, unspecified
CPT/HCPCS: 87636; 96361; 96374; 99284; J2405

== ENCOUNTER 2023-05-07 20:29 | Emergency (ER) | payer OTHER, SELFPAY ==
[2023-05-07 20:30] VITALS: BP 140/75; PULSE 80; RESP 16; TEMP 36.6; O2SAT 98; BMI 28.2
[2023-05-07 20:55] VITALS: BP 140/75; PULSE 80; RESP 16; TEMP 36.6; O2SAT 98
--- NOTE | 2023-05-07 21:32 | ED_ITS ---
Discharge Plan Disposition Patient Disposition: Home, Self-Care Chief Complaint: Recheck/Abnormal Lab/Rx Prescriptions Prescriptions: No Action ondansetron 4 mg tablet,disintegrating 4 mg PO Q8H PRN (Reason: nausea and vomiting) 5 Days Qty: 10 0RF Probiotic 3 billion cell capsule 3,000 mmu cells PO DAILY Qty: 30 0RF Rx Instructions: administer with a meal Referrals Follow up/Referrals: Keith Longoria MD [Primary Care Provider] - See instructions Jose Alfredo Morales DO [Staff Physician] - See instructions Activity Restrictions/Add. Instructions Additional Instructions/Restrictions: Call your family doctor to establish care for this visit to the emergency department and schedule follow-up within 48 hours to ensure improvement. If you have any worsening of your condition or any other concerning signs or symptoms, return to the emergency department or your primary care doctor for further evaluation. You do not need to return to the emergency department with high blood pressure alone unless top number is greater than 200 or bottom numbers greater than 120. You should also return to the emergency department if you are having high blood pressure plus chest pain, shortness of breath, headaches, vision changes, or any other symptoms. Clinical Impressions Clinical Impression: Asymptomatic hypertension Stand Alone Forms Stand Alone Forms: Work/School Release Discharge ED Provider: Cheikh Cedillo General Adult HPI General Chief complaint: Recheck/Abnormal Lab/Rx Stated complaint: HBP Time Seen by Provider: 05/07/23 20:32 Mode of Arrival: Ambulatory Source of Information: Patient Limitations: No Limitations Description of Symptoms (Recalled from ER Triage Doc. by RN): pt attend a health fair at work today and blood pressure was elevated and was told to follow up. pt has no c/o. History of Present Illness HPI narrative: 43-year-old male presenting with asymptomatic hypertension. Got his blood pressure taken at work today, it was elevated, so they told him to come to the emergency department and be evaluated prior to return to work. Patient denies any symptoms. Intermittently has headaches, but does not think they are associated. Related Data Previous Rx's Medication Instructions Recorded lactobacillus combination no.4 3 3,000 mmu cells PO DAILY #30 caps 03/28/23 billion cell capsule (Probiotic) ondansetron 4 mg disintegrating 4 mg PO Q8H PRN nausea and 03/28/23 tablet vomiting 5 days #10 tabs Allergies Allergy/AdvReac Type Severity Reaction Status Date / Time No Known Allergies Allergy Verified 10/27/17 23:08 [facility] Disclaimer: The information contained in this section may have been updated after the patient was seen, as this information can be updated by other users. Social History Smoking Status: Never smoker alcohol intake: never current occupational status: other Travel in the last 8 weeks: None ROS Obtained: Yes All systems reviewed & no additional complaints except as documented Physical Exam General General appearance: alert and in no apparent distress Head Head exam: atraumatic and normocephalic Eye Eye exam: Present normal appearance, PERRL and EOMI ENT ENT exam: Present mucous membranes moist Neck Neck exam: Present normal inspection, full ROM and trachea midline Respiratory Respiratory exam: Absent respiratory distress, wheezes, stridor, accessory muscle use or prolonged expiratory phase Cardiovascular Cardiovascular exam: Present normal rhythm Abdominal Exam Abdominal exam: Present soft; Absent distention, tenderness, guarding, rebound or rigidity Extremities Exam Extremities exam: Absent edema Neurological Exam Neurological exam: Present alert, oriented X3, CN II-XII intact and normal gait; Absent motor sensory deficit Skin Skin exam: Present warm and dry; Absent diaphoresis or erythema Medical Decision Making Medical Records Medical records reviewed: Yes I reviewed the patient's medical records. Robert Inquiry Pt receiving controlled substance: No Robert was queried for this patient: No Vital Signs: 05/07/23 20:30 05/07/23 20:55 Temperature 98 F 98 F Temperature Source Oral Oral Pulse Rate [Right] 80 80 Respiratory Rate 16 16 Blood Pressure [Right Arm] 140/75 140/75 Blood Pressure Mean [Right Arm] 96 96 02 Sat by Pulse Oximetry 98 98 Medical Decision Narrative: 43-year-old male presenting with asymptomatic hypertension. Physical exam patient well-appearing neurovascularly intact without abnormal cardiopulmonary findings. Not currently complaining of any symptoms. 140/75, nontachycardic, saturating appropriately on room air. Because patient not having symptoms and overall well-appearing, only mildly hypertensive, deemed appropriate for outpatient management. Given referral to family physician. Because patient at baseline without signs or symptoms of clinical decompensation, deemed appropriate for discharge. Results were relayed to patient who voiced understanding and were agreeable to outpatient management and follow up. At the time of discharge the patient was hemodynamically stable, tolerating PO, and mobilizing appropriately. Critical Care Critical Care Time Critical Care Time: No
[2023-05-07 21:40] VITALS: BP 134/72; PULSE 79; RESP 16; TEMP 36.6; O2SAT 98
== END 2023-05-07 21:41 | disposition home or self-care (01) ==
PROVIDERS: Emergency Provider Emergency Medicine; PCP Family Medicine
DX: R03.0 Elevated blood-pressure reading, without diagnosis of hypertension (principal)
CPT/HCPCS: 99282

== ENCOUNTER 2025-03-14 20:52 | Emergency (ER) | payer OTHER, SELFPAY ==
[2025-03-14 21:01] VITALS: BP 138/78; PULSE 73; RESP 17; TEMP 36.4; O2SAT 97; BMI 29.5
--- NOTE | 2025-03-14 21:01 | HMH.EDGENADL ---
Discharge Plan Prescriptions Prescriptions: No Action ondansetron 4 mg tablet,disintegrating 4 mg PO Q8H PRN (Reason: nausea and vomiting) Qty: 15 0RF Referrals Follow up/Referrals: Keith Longoria MD [Primary Care Provider, Medical] - See instructions Print Language Print Language: Danish Discharge ED Provider: Viridiana Myers Adult HPI General Stated complaint: V/D feels bad all over Time Seen by Provider: 03/14/25 20:59 Related Data Previous Rx's ?Medication ?Instructions ?Recorded ondansetron 4 mg disintegrating 4 mg PO Q8H PRN nausea and 01/27/25 tablet vomiting #15 tabs Allergies Allergy/AdvReac Type Severity Reaction Status Date / Time No Known Allergies Allergy Verified 01/27/25 18:57 [facility] Disclaimer: The information contained in this section may have been updated after the patient was seen, as this information can be updated by other users. Medical History Nausea vomiting and diarrhea Social History Smoking Status: Never smoker alcohol intake: never current occupational status: other Travel in the last 8 weeks?: None Other Medical History Have you received the Flu Vaccine for this season: No Have you received the Pneumonia Vaccine: No Physical Exam General General appearance: alert and in no apparent distress Head Head exam: atraumatic, normocephalic and normal inspection Eye Eye exam: Present normal appearance, PERRL and EOMI; Absent scleral icterus ENT ENT exam: Present normal exam and normal external ear exam Neck Neck exam: Present normal inspection and full ROM Chest Chest inspection: Present normal inspection and symmetric chest wall rise Respiratory Respiratory exam: Present normal lung sounds bilaterally; Absent respiratory distress or wheezes Cardiovascular Cardiovascular exam: Present regular rate, normal rhythm and normal heart sounds Abdominal Exam Abdominal exam: Present soft and distention; Absent tenderness, guarding or rebound Extremities Exam Extremities exam: Present normal inspection and full ROM Back Exam Back exam: Present normal inspection and full ROM Neurological Exam Neurological exam: Present alert and oriented X3 Psychiatric Psychiatric exam: Present normal affect and normal mood Skin Skin exam: Present warm and dry Medical Decision Making Medical Records Screening: Per USPSTF and CDC recommendations, given the prevalence of disease in our region, it is our hospital?s policy to screen for HIV and viral Hepatitis for all patients aged 18 and over and those with ongoing risk factors.
--- NOTE | 2025-03-14 21:24 | ED_ITS ---
<Statement entered by Viridiana Myers DO - 03/15/25 01:07> I was consulted by the LISSA, and we discussed the complexity of problems being addressed. I approve the treatment and management plan for this patient's care in the emergency department, thus performing a substantial portion of the medical decision making. Viridiana Myers DO Discharge Plan Disposition Patient Disposition: Home, Self-Care Condition: Good Prescriptions Prescriptions: New ondansetron 4 mg tablet,disintegrating 4 mg PO Q6H PRN (Reason: nausea and vomiting) Qty: 10 0RF No Action ondansetron 4 mg tablet,disintegrating 4 mg PO Q8H PRN (Reason: nausea and vomiting) Qty: 15 0RF Referrals Follow up/Referrals: Keith Longoria MD [Primary Care Provider, Medical] - See instructions Activity Restrictions/Add. Instructions Additional Instructions/Restrictions: Please return to the emergency department with any worsening signs or symptoms, progress your diet as tolerated without fluids and solids, please utilize antinausea medicine as needed. Please follow-up with your PCP in the upcoming days/weeks. Clinical Impressions Clinical Impression: Nausea vomiting and diarrhea Instructions Patient Instructions: DI for Diarrhea and Traveler's Diarrhea in Adults Print Language Print Language: Bahamian Discharge ED Provider: Viridiana Myers General Adult HPI General Chief complaint: Nausea/Vomiting/Diarrhea Stated complaint: V/D feels bad all over Time Seen by Provider: 03/14/25 20:59 Mode of Arrival: Ambulatory Source of Information: Patient, Spouse and Medical Record Limitations: No Limitations Description of Symptoms (Recalled from ER Triage Doc. by RN): Pt and his arrival with same complaints after being around sick family members. Pt states he had diarrhea and nausea that began yesterday associated with intermittent abdominal cramping and body aches. Pt states he tried some home zofran with no results. History of Present Illness HPI narrative: 45-year-old male presents to the emergency department accompanied by his significant other for a 24-hour history of nausea vomiting diarrhea, denies any fever chills chest pain shortness of breath cough congestion, denies any overt abdominal pain, denies any hematuria melena hematochezia hematemesis or hemoptysis, diarrhea is nonbloody nonbilious, patient is a non-smoker denies any alcohol or drug use, patient has past medical history consistent with GERD, otherwise no real relevant past medical history takes no other medications at home. Of note, grandchildren had similar symptomatology a few days ago and both patient and spouse were exposed. Initial triage vitals are unremarkable. Patient also has been utilizing Zofran with some relief of his symptomatology able to tolerate p.o. intake when utilizing Zofran. Please note that above description of symptoms, in this electronic medical record under categorization of recalled from ER triage doctor by RN are reflective of an initial nursing assessment, however, is not reflective of my full history and physical exam that was personally taken and clarified. Consequentially, this preceding description of symptoms, which may include the patient's categorized chief complaint in the EMR, do not reflect my personal clinical impression, and the ultimate description of history of present illness and patient stated complaints should be deferred to this section of the note. Unless stated otherwise or congruent with this section of the note, additional signs, symptoms, or incongruence should be interpreted as inaccurate with my clinical impression. Onset (ago): hour(s) Related Data Previous Rx's ?Medication ?Instructions ?Recorded ondansetron 4 mg disintegrating 4 mg PO Q8H PRN nausea and 01/27/25 tablet vomiting #15 tabs ondansetron 4 mg disintegrating 4 mg PO Q6H PRN nausea and 03/14/25 tablet vomiting #10 tabs Allergies Allergy/AdvReac Type Severity Reaction Status Date / Time No Known Allergies Allergy Verified 01/27/25 18:57 [facility] Disclaimer: The information contained in this section may have been updated after the patient was seen, as this information can be updated by other users. Medical History Nausea vomiting and diarrhea Social History Smoking Status: Never smoker alcohol intake: never current occupational status: other Travel in the last 8 weeks?: None Have you lived/traveled outside [place] in past 30 days?: No Contact w/someone who lives/traveled outside [place] past 30 days?: No Exposure to someone with infectious disease in past 14 days?: No Do you have a fever (greater than 100.4 F or 38 C)?: No Have you tested positive for COVID-19?: No Exposed to someone with COVID-19 in past 14 days?: No Do you have a sore throat?: No Do you have a cough?: No Do you have any weakness?: No Do you have any diarrhea?: No Are you experiencing any unusual bleeding?: No Do you have any muscle aches/pain?: No Do you have any abdominal pain?: No Are you experiencing loss of taste or smell?: No Other Medical History Have you received the Flu Vaccine for this season: No Have you received the Pneumonia Vaccine: No ROS Obtained: Yes All systems reviewed & no additional complaints except as documented Physical Exam General General appearance: alert and in no apparent distress Head Head exam: atraumatic and normocephalic Eye Eye exam: Present PERRL and EOMI ENT ENT exam: Present mucous membranes moist Neck Neck exam: Present normal inspection Chest Chest inspection: Present normal inspection and symmetric chest wall rise Respiratory Respiratory exam: Present normal lung sounds bilaterally; Absent respiratory distress Cardiovascular Cardiovascular exam: Present regular rate and normal rhythm Abdominal Exam Abdominal exam: Present soft; Absent tenderness, guarding, rebound or rigidity Extremities Exam Extremities exam: Present normal inspection Neurological Exam Neurological exam: Present alert and oriented X3 Psychiatric Psychiatric exam: Present normal affect Skin Skin exam: Present warm and dry Medical Decision Making Medical Records Medical records reviewed: Yes I reviewed the patient's medical records. Screening: Per USPSTF and CDC recommendations, given the prevalence of disease in our region, it is our hospital?s policy to screen for HIV and viral Hepatitis for all patients aged 18 and over and those with ongoing risk factors. Robert Inquiry Pt receiving controlled substance: No Robert was queried for this patient: No Vital Signs: 03/14/25 21:01 Temperature 97.6 F Temperature Source Oral Pulse Rate [Left] 73 Respiratory Rate 17 Blood Pressure [Right Arm] 138/78 Blood Pressure Mean [Right Arm] 98 Blood Pressure Source [Right Arm] Automatic Cuff Blood Pressure Position [Right Arm] Sitting 02 Sat by Pulse Oximetry 97 Oxygen Delivery Method Room Air Lab Data Lab results reviewed: Yes I reviewed the patient's lab results. Orders (Tests/Meds): ORDERS Category Date Time Status Mini Respiratory Panel Stat Lab 03/14/25 21:15 Ordered Medical Decision Narrative: 45-year-old male presents emergency department accompanied by significant other for a less than 24-hour history of nausea vomiting diarrhea, differential diagnose include but not limited to, gastroenteritis, colitis, viral syndrome, acute URI among others. I discussed this patient's case with the attending physician Dr. Myers Nursing staff per triage protocol had many respiratory swab obtained, I offered laboratory studies and other workup to the patient at the bedside, patient and family would like to pursue noninvasive testing and only pursue rapid antigen swabs at this time. Patient states I am here for a work note because I work at [employer] , patient has been utilizing Zofran and able to tolerate some p.o. intake, will p.o. challenge here in the emergency department. Shared decision making was utilized. I believe minimal workup is required at this time as patient is otherwise hemodynamically stable nontoxic-appearing nontender abdomen. Will call patient and family with any results of respiratory swabs, no news is good news, patient was able to tolerate p.o. intake here with p.o. fluids in the emergency department. Will prescribe the patient 4 mg p.o. sublingual Zofran as needed for nausea and vomiting. Patient and family voiced understanding and agreement with the current treatment plan/discharge plan. Strict return precautions given. Critical Care Critical Care Time Critical Care Time: No
[2025-03-14 21:28] LABS: Coronavirus 19, PCR Not Detected (NotDetected); Influenza A, PCR Not Detected (NotDetected); Influenza B, PCR Not Detected (NotDetected)
[2025-03-14 21:32] VITALS: BP 138/78; PULSE 73; RESP 20; TEMP 36.6; O2SAT 100
--- NOTE | 2025-03-14 21:46 | PC.NURSE ---
patient asked for work note for yesterday and today. patient notified that we cannot provide work excuses for the day prior unless they were seen in the Emergency department. patient provided with work excuse for today and good to return tomorrow. patient requested to speak to provider. provider Luis Mcdonnell PA-C at bedside now.
== END 2025-03-14 21:48 | disposition home or self-care (01) ==
PROVIDERS: Physician Assistant; Emergency Provider Student in an Organized Health Care Education/Training Program; PCP Family Medicine
DX: R11.2 Nausea with vomiting, unspecified (principal); R19.7 Diarrhea, unspecified
CPT/HCPCS: 87631; 99283; 99284